=== PATIENT | female | born 1965 | race Two or more races ===

== ENCOUNTER 2020-06-08 10:36 | Outpatient (REF) | payer OTHER, SELFPAY | END 2020-06-08 10:37 | disposition home or self-care (01) | LOC: HO.LAB 10:36 | PROVIDERS: PCP Internal Medicine; Visit Provider Internal Medicine | DX: Z20.828 Contact with and (suspected) exposure to other viral communicable diseases (principal) | CPT/HCPCS: C9803; U0003 ==

== ENCOUNTER 2024-10-28 10:03 | Outpatient (AMB) | payer OTHER, SELFPAY ==
--- NOTE | 2024-10-28 10:08 | A.OFFVIS_ITS ---
Vital Signs 10/28/24 10:16 Height 5 ft 4 in Weight 165 lb BMI 28.3 Intake Visit Reasons: Left shoulder pain and weakness Intake Note: June is a 58 year old right hand dominant female who presents with complaints of progressively worsening left shoulder pain and weakness. She describes her pain as sharp in nature. Most of the pain is along the lateral aspect of her l eft shoulder. Her symptoms have gotten worse over the last 6 months in spite of continued non operative treatments. She has failed the last 6 weeks of conservative treatment which has included topical creams, Tylenol, anti- inflammatory medicines, physical therapy exercises and a home exercise program. She reports difficulty lifting her left hand above shoulder height. She has seen a chiropractor which gave her minimal relief. Allergies No Known Allergies Allergy (Verified 10/28/24 10:16) Medication List - Last Reconciled 10/28/24 by Kee Gaviria MD atorvastatin 20 mg PO DAILY clopidogrel 75 mg PO DAILY dulaglutide (Trulicity) mg subcut duloxetine 60 mg PO DAILY duloxetine 30 mg PO DAILY fluoxetine 40 mg PO DAILY gabapentin 600 mg PO TID gabapentin 300 mg PO TID lisinopril 10 mg PO DAILY metformin 1,000 mg PO BID mirtazapine 15 mg PO BEDTIME PRN pioglitazone 30 mg PO DAILY sodium polystyrene sulfonate PO Physical Exam Const Other: Well-nourished well-developed very friendly female awake alert and oriented x3 in no acute distress Extrem Other: Bilateral upper extremity examination shows good capillary refill, no skin lesions noted, normal sensation light touch Left shoulder examination shows decreased range of motion when compared to her right shoulder, 4+ out of 5 strength with supraspinatus testing, positive impingement signs, tenderness over her acromioclavicular joint, no instability Assessment & Plan Assessment & Plan (1) Rotator cuff insufficiency of left shoulder: Code(s): M25.312 - Other instability, left shoulder Category: Medical Plan Ms. Holliday presents with left shoulder pain and weakness due to impingement syndrome and possible rotator cuff tearing. Thus, I will send the patient for an MRI of her left shoulder for further evaluation. I will see her back once the MRI is available to discuss the findings and treatment options. Feel free to call me at any time should questions regarding her orthopedic management arise. Thank you very much for asking me to see this very friendly patient. I spent 20 minutes in reviewing the patient's records and imaging studies, seeing the patient and documenting in the medical record. Orders: Orders MR shoulder LT wo con Today M25.312 - Other instability, left shoulder Coding Level of Care Code New Pt Level 3 (82005) Complex EM visit Add On G2211 Diagnoses Rotator cuff insufficiency of left shoulder M25.312
[2024-10-28 10:16] VITALS: BMI 28.3
== END 2024-10-28 10:25 | disposition home or self-care (01) ==
LOC: HO.HOS 10:03
PROVIDERS: PCP Internal Medicine; Visit Provider Orthopaedic Surgery
DX: M25.312 Other instability, left shoulder (principal)
CPT/HCPCS: 99203

== ENCOUNTER → 2024-10-28 10:03 | Outpatient (BNVA) | payer OTHER, SELFPAY | PROVIDERS: PCP Internal Medicine; Visit Provider Orthopaedic Surgery ==

== ENCOUNTER → 2024-11-01 18:49 | Outpatient (BNV) | payer OTHER, SELFPAY | PROVIDERS: PCP Internal Medicine; Visit Provider Radiology Diagnostic Radiology | DX: M67.813 Other specified disorders of tendon, right shoulder (principal) | CPT/HCPCS: 73221 ==

== ENCOUNTER 2024-11-01 18:50 | Outpatient (REF) | payer OTHER, SELFPAY ==
--- NOTE | ~2024-11-01 | MR_ITS ---
EXAMINATION: MRI LEFT SHOULDER WITHOUT CONTRAST HISTORY: M25.312 - Other instability, left shoulder COMPARISON: There are no prior studies for comparison. TECHNIQUE: Coronal T1, T2, and fat suppressed T2, axial fat suppressed proton density, and sagittal T2 weighted MR images of the left shoulder were obtained. FINDINGS: Bone Marrow: Bone marrow signal intensity is normal. Joint effusion: There is no glenohumeral joint effusion. Glenohumeral joint: The glenohumeral joint is maintained. AC joint: The AC joint is unremarkable. Supraspinatus muscle/tendon: There is increased T2 signal intensity within the supraspinatus tendon, consistent with tendinosis. There is a probable small joint surface partial tear approximately 10 mm from the insertion of the tendon. No full-thickness tear is seen. There is no significant fluid in the subdeltoid/subacromial bursa. Normal muscle bulk. Infraspinatus muscle/tendon: The infraspinatus tendon is intact. Normal muscle bulk. Teres minor muscle/tendon: The teres minor tendon is intact. Normal muscle bulk. Subscapularis muscle/tendon: The subscapularis tendon is intact. Normal muscle bulk. Biceps tendon: The biceps tendon is intact and normally located. Glenoid labrum: The glenoid labrum is grossly unremarkable in appearance, although evaluation is limited by lack of a joint effusion. Other findings: None MR/MR shoulder LT wo con IMPRESSION: Moderate suprasellar radius tendinosis. Probable small joint surface partial tear. No full-thickness tear is seen. Electronically signed by: Luis Leal MD 11/02/2024 02:26 PM EDT
== END 2024-11-01 18:51 | disposition home or self-care (01) ==
LOC: HO.MRI 18:50
PROVIDERS: PCP Internal Medicine; Visit Provider Orthopaedic Surgery
DX: M25.312 Other instability, left shoulder (principal)
CPT/HCPCS: 73221